=== PATIENT | female | born 1960 ===

== ENCOUNTER 2018-03-24 09:27 | Day surgery (SDC) | payer OTHER ==
[~2018-03-24 09:27] MED LIST: SYNTHROID88 MCG PO; VALSARTAN80 MG PO
== END 2018-03-24 16:05 | disposition home or self-care (01) ==
LOC: CIR.AMB 09:27
DX: G56.01 Carpal tunnel syndrome, right upper limb (principal); M65.341 Trigger finger, right ring finger

== ENCOUNTER 2022-08-06 06:00 | Day surgery (SDC) | payer OTHER ==
[~2022-08-06] VITALS: Ht 147.3 cm; Wt 71.2 kg
[~2022-08-06 06:00] MED LIST changes: +MAXIMUM D3325 MCG PO; +ROSUVASTATIN CAL5 MG PO
== END 2022-08-06 16:00 | disposition home or self-care (01) ==
LOC: CIR.AMB 06:00
PROVIDERS: ATTEND Orthopaedic Surgery Hand Surgery
DX: M65.312 Trigger thumb, left thumb (principal); E11.9 Type 2 diabetes mellitus without complications; E78.00 Pure hypercholesterolemia, unspecified; E78.3 Hyperchylomicronemia; Z20.822 Contact with and (suspected) exposure to COVID-19; I10 Essential (primary) hypertension